=== PATIENT | female | born 2000 | race Caucasian/White ===

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

== ENCOUNTER → 2018-06-30 | Outpatient (REF) | payer OTHER ==
[2018-06-30 15:11] LABS: CHLAMYDIA DNA AMPLIFICATION NEGATIVE (NEGATIVE); GC DNA AMPLIFICATION NEGATIVE (NEGATIVE)
== END ==
LOC: M LAB REF 12:53
PROVIDERS: ATTEND Advanced Practice Midwife
DX: Z11.3 Encounter for screening for infections with a predominantly sexual mode of transmission (principal)

== ENCOUNTER → 2018-07-03 | Outpatient (CLI) | payer OTHER ==
[2018-07-03 11:28] LABS: HCG, SERUM QUALITATIVE NEGATIVE (NEGATIVE)
[2018-07-03 12:01] LABS: HEPATITIS A ANTIBODY IGM NEGATIVE (NEGATIVE); HEPATITIS B CORE ANTIBODY IGM NEGATIVE (NEGATIVE); HEPATITIS B SURFACE ANTIGEN NEGATIVE (NEGATIVE); HEPATITIS C VIRUS ABY INDEX 0.1 INDEX (<0.8); HIV 1&2 SCREEN CENTAUR NEGATIVE (NEGATIVE)
== END ==
LOC: M LAB 09:58
PROVIDERS: ATTEND Advanced Practice Midwife
DX: Z12.4 Encounter for screening for malignant neoplasm of cervix (principal)

== ENCOUNTER → 2022-06-10 | Outpatient (REF) | payer OTHER ==
[2022-06-10 15:44] LABS: GC DNA AMPLIFICATION NEGATIVE (NEGATIVE)
== END ==
LOC: M SFHCWAGY 13:00
PROVIDERS: ATTEND Obstetrics & Gynecology
DX: N94.19 Other specified dyspareunia (principal); Z12.4 Encounter for screening for malignant neoplasm of cervix